=== PATIENT | male | born 1965 | race Caucasian/White ===

== ENCOUNTER 2016-06-12 16:36 | Emergency (ER) | payer OTHER ==
[~2016-06-12 16:36] MED LIST: KEFLEX500 MG PO; VICODIN,LORT1 TABLET PO; VITAMINS
[2016-06-12 17:01] LABS: BASOPHIL COUNT 0.1 K/uL (0-0.1); EOSINOPHIL (%) 1.1 % (0-5); EOSINOPHIL COUNT 0.2 K/uL (0-0.3); HEMATOCRIT 44.9 % (38.0-50.0); IMMATURE GRANULOCYTE COUNT 0.2 K/uL; INSTRUMENT ABS NEUTROPHIL CT 13.4 K/uL; LYMPHOCYTE COUNT 1.2 K/uL (1.0-2.8); MCH 28.3 PG (29.0-34.0); MCHC 34.3 G/DL (30.0-36.0); MCV 82.4 FL (86-99); MONOCYTE COUNT 0.8 K/uL (0-0.8); NEUTROPHIL (%) 84.7 % (45-76); NEUTROPHIL COUNT 13.4 K/uL (1.8-6.4); RBC DIS.WIDTH-CV 12.3 % (11.8-14.6); RED BLOOD COUNT 5.45 M/uL (4.00-5.50); WHITE BLOOD COUNT 15.8 K/uL (4.1-10.2)
[2016-06-12 17:10] LABS: AMYLASE 37 IU/L (1-118); CHLORIDE 106 mEq/L (99-109); POTASSIUM 4.1 mEq/L (3.7-5.4); SODIUM 137 mEq/L (136-147)
[2016-06-12 17:12] LABS: GLUCOSE 104 mg/dL (70-99)
[2016-06-12 17:13] LABS: ANION GAP 11 MEQ/L (2-14)
[2016-06-12 17:15] LABS: SERUM ETHYL ALCOHOL < 10 mg/dL
[2016-06-12 17:16] LABS: GFR ESTIMATE (CALCULATED) > 59 mL/min/; UREA NITROGEN (BUN) 21 mg/dL (9-23)
[2016-06-12 17:19] LABS: LIPASE 11 U/L (1.0-51.0)
[2016-06-12 17:59] LABS: MEAN PLAT.VOLUME 11.2 uM^3 (9.0-12.4); PLAT.SUFFICIENCY ADEQUATE; PLATELET COUNT 94 K/uL (156-360)
[2016-06-12 19:40] VITALS: BP 154/94
[2016-06-12] MEDS ORDERED: ULTRAM50 MG PO (21:13)
[2016-06-12] MEDS ORDERED: MOTRIN600 MG PO (21:13)
[2016-06-12] MEDS ORDERED: BACLOFEN10 MG PO (21:13)
[2016-06-14] MEDS ORDERED: METHADONE 22 MG/1 ML PO (13:44)
== END 2016-06-12 21:45 | disposition home or self-care (01) ==
LOC: TRA
PROVIDERS: Emergency Medicine
DX: S52.501A Unspecified fracture of the lower end of right radius, initial encounter for closed fracture (principal); S00.83XA Contusion of other part of head, initial encounter; M54.6 Pain in thoracic spine; S01.312A Laceration without foreign body of left ear, initial encounter; W17.89XA Other fall from one level to another, initial encounter; M54.2 Cervicalgia; R07.9 Chest pain, unspecified
CPT/HCPCS: 70450; 71010; 71260; 72125; 72129; 72132; 73110; 74177; 80048; 81003; 82150; 83690; 85025; 86850; 86900; 86901; 93005; 99281; 99285; G0480; J1885; J2270

== ENCOUNTER 2016-06-15 12:47 | Day surgery (SDC) | payer OTHER ==
[~2016-06-15] VITALS: Ht 175.3 cm; Wt 90.0 kg
[~2016-06-15 12:47] MED LIST changes: +BACLOFEN10 MG PO; +METHADONE 22 MG/1 ML PO; +MOTRIN600 MG PO; +ULTRAM50 MG PO
[2016-06-15] MEDS ORDERED: ADVIL,NUPRIN,M200 MG PO (13:36)
[2016-06-15 13:39] VITALS: BP 152/94
[2016-06-15 19:33] VITALS: BP 139/86
[2016-06-15 20:21] VITALS: BP 153/91
== END 2016-06-15 20:23 | disposition home or self-care (01) ==
LOC: SDC 12:47
PROC: 0PSH04Z Reposition Right Radius with Internal Fixation Device, Open Approach (ICD-10-PCS; principal; 2016-06-15)
DX: S52.571A Other intraarticular fracture of lower end of right radius, initial encounter for closed fracture (principal); W17.89XA Other fall from one level to another, initial encounter; H54.0 Blindness, both eyes; Y92.009 Unspecified place in unspecified non-institutional (private) residence as the place of occurrence of the external cause; Y99.8 Other external cause status; Y93.9 Activity, unspecified; F11.20 Opioid dependence, uncomplicated; J45.909 Unspecified asthma, uncomplicated; Z82.49 Family history of ischemic heart disease and other diseases of the circulatory system; Z83.3 Family history of diabetes mellitus; Z82.61 Family history of arthritis; Z80.9 Family history of malignant neoplasm, unspecified
CPT/HCPCS: 73100; 76000; C1713; J0131; J0690; J1170; J2250; J2405; J2795; J3010; S0020

== ENCOUNTER 2016-06-20 12:54 | Emergency (ER) | payer OTHER ==
[~2016-06-20] VITALS: Ht 175.3 cm; Wt 94.2 kg
[~2016-06-20 12:54] MED LIST changes: +ADVIL,NUPRIN,M200 MG PO
[2016-06-20 14:29] LABS: HEMATOCRIT 42.8 % (38.0-50.0); MCHC 34.6 G/DL (30.0-36.0); MCV 81.1 FL (86-99); MEAN PLAT.VOLUME 9.3 uM^3 (9.0-12.4); PLATELET COUNT 370 K/uL (156-360); RBC DIS.WIDTH-CV 12.5 % (11.8-14.6); RBC DIS.WIDTH-SD 36.4 % (39-53); RED BLOOD COUNT 5.28 M/uL (4.00-5.50); WHITE BLOOD COUNT 8.6 K/uL (4.1-10.2)
[2016-06-20 14:39] LABS: CHLORIDE 105 mEq/L (99-109)
[2016-06-20 14:40] LABS: POTASSIUM 3.9 mEq/L (3.7-5.4); SODIUM 140 mEq/L (136-147)
[2016-06-20 14:41] LABS: GLUCOSE 129 mg/dL (70-99)
[2016-06-20 14:43] LABS: ANION GAP 13 MEQ/L (2-14)
[2016-06-20 14:45] LABS: ERTH.SED.RATE 26 MM/HR (0-15); GFR ESTIMATE (CALCULATED) > 59 mL/min/
[2016-06-20 14:46] LABS: UREA NITROGEN (BUN) 18 mg/dL (9-23)
[2016-06-20 17:06] VITALS: BP 171/90
== END 2016-06-20 17:12 | disposition home or self-care (01) ==
LOC: EME 12:54
PROVIDERS: Emergency Medicine
DX: G43.909 Migraine, unspecified, not intractable, without status migrainosus (principal); Z87.442 Personal history of urinary calculi
CPT/HCPCS: 70450; 80048; 85027; 85651; 99281; 99285; J1200; J1885; J2765; J7030

== ENCOUNTER 2016-08-25 11:09 | Day surgery (SDC) | payer OTHER ==
[~2016-08-25] VITALS: Ht 175.3 cm; Wt 68.2 kg
[2016-08-25 11:35] LABS: BASOPHIL COUNT 0.1 K/uL (0-0.1); EOSINOPHIL (%) 7.2 % (0-5); EOSINOPHIL COUNT 0.4 K/uL (0-0.3); HEMATOCRIT 40.3 % (38.0-50.0); IMMATURE GRANULOCYTE (%) 0.2 % (0.0-0.7); INSTRUMENT ABS NEUTROPHIL CT 3.2 K/uL; LYMPHOCYTE COUNT 1.8 K/uL (1.0-2.8); MCH 29.2 PG (29.0-34.0); MCHC 34.7 G/DL (30.0-36.0); MEAN PLAT.VOLUME 9.4 uM^3 (9.0-12.4); MONOCYTE (%) 6.3 % (3-12); MONOCYTE COUNT 0.4 K/uL (0-0.8); NEUTROPHIL (%) 54.3 % (45-76); NEUTROPHIL COUNT 3.2 K/uL (1.8-6.4); PLATELET COUNT 257 K/uL (156-360); RBC DIS.WIDTH-CV 12.9 % (11.8-14.6); RBC DIS.WIDTH-SD 39.1 % (39-53); WHITE BLOOD COUNT 5.8 K/uL (4.1-10.2)
[2016-08-25 11:41] VITALS: BP 136/91
[2016-08-25 12:38] LABS: ALKALINE PHOSPHATASE 89 IU/L (3-129); ANION GAP 8 MEQ/L (2-14); CHLORIDE 106 MEQ/L (99-109); GFR ESTIMATE (CALCULATED) > 59 mL/min/; GLUCOSE 86 mg/dL (70-99); SAMPLE HEMOLYSIS CHECK 0; SAMPLE ICTERIC CHECK 0; SAMPLE LIPEMIA CHECK 0; SODIUM 141 MEQ/L (136-147); TOTAL BILIRUBIN 0.4 MG/DL (0.0-1.0); UREA NITROGEN (BUN) 12 mg/dL (9-23)
[2016-08-25 17:05] VITALS: BP 144/100
== END 2016-08-25 18:04 | disposition home or self-care (01) ==
LOC: SDC 11:09
PROVIDERS: Ophthalmology
DX: H27.01 Aphakia, right eye (principal); H35.52 Pigmentary retinal dystrophy; F11.20 Opioid dependence, uncomplicated; Z83.3 Family history of diabetes mellitus; Z82.49 Family history of ischemic heart disease and other diseases of the circulatory system; Z82.0 Family history of epilepsy and other diseases of the nervous system; Z80.1 Family history of malignant neoplasm of trachea, bronchus and lung; J45.909 Unspecified asthma, uncomplicated
CPT/HCPCS: 80053; 85025; 93005; J0330; J0690; J1100; J1170; J2405; J3010; J3300; V2632